=== PATIENT | female | born 1955 | race Caucasian/White ===

== ENCOUNTER → 2017-01-27 | Outpatient (CLI) | payer OTHER ==
[~2017-01-27] MED LIST: ASPCH81X PO; ATOR10TA82 PO; DILT-119 PO; GLC/500 PO; MULT-506 PO; OMEGCAP2 PO; VALS320T2 PO
[2017-01-27 12:18] LABS: BASO % 0.3 %; BASO ABS # 0.02 K/uL (0-0.2); COMPLETE YES; EOS % 2.7 %; HEMATOCRIT 40.2 % (37-47); IG% 0.3 %; LYMPH % 28.2 %; LYMPH ABS # 1.78 K/uL (1.2-3.4); MEAN CELL VOLUME 83.9 fL (80-100); MEAN CORPUSCULAR HEMOGLOBIN 26.7 pg (25-34); MEAN CORPUSCULAR HGB CONC 31.8 g/dl (32-36); MEAN PLATELET VOLUME 10.1 fL (7.4-10.4); MONO % 10.3 %; NEUT % 58.2 %; PLATELET COUNT 273 K/uL (130-400); RED BLOOD COUNT 4.79 M/uL (4.2-5.4); WHITE BLOOD COUNT 6.31 K/uL (4.8-10.8)
[2017-01-27 12:29] LABS: ALT/SGPT 22 U/L (12-78); BLOOD UREA NITROGEN 16 mg/dl (7-18); BUN/CREATININE RATIO 21.1 (10-20); CARBON DIOXIDE 30 mmol/L (21-32); CHLORIDE 101 mmol/L (98-107); CHOLESTEROL 117 mg/dl (0-200); CREATININE 0.76 mg/dl (0.60-1.20); GLUCOSE 101 mg/dl (70-99); POTASSIUM 4.1 mmol/L (3.5-5.1); SODIUM 139 mmol/L (136-145)
[2017-01-27 12:36] LABS: CALCIUM 9.8 mg/dl (8.5-10.1)
[2017-01-27 12:37] LABS: URINE APPEARANCE CLEAR (CLEAR); URINE BILIRUBIN NEG (NEG); URINE COLOR YELLOW; URINE EPITHELIAL CELL AUTO >30 /lpf (0-5); URINE NITRITE NEG (NEG); URINE PH 7.5 (4.5-7.5); URINE SPECIFIC GRAVITY 1.011 (1.000-1.030); UROBILINOGEN NEG (NEG); ZZUR CULT IF INDIC CLEAN CATCH YES
[2017-01-27 12:40] LABS: ALB/GLOB RATIO 1.1 (0.9-2); ALKALINE PHOSPHATASE 66 U/L (45-117); AST/SGOT 12 U/L (15-37); CHOLESTEROL/HDL RATIO 2.1; HDL CHOLESTEROL 56 mg/dl; LDL CHOLESTEROL CALCULATED 45 mg/dl; TRIGLYCERIDES 82 mg/dl (0-150); VERY LOW DENSITY LIPOPROT CALC 16 mg/dl
[2017-01-27 12:45] LABS: MANUAL MICROSCOPIC REQUIRED? NO; REVIEW REQ? NO
[2017-01-27 12:46] LABS: RATIO 10.1 mcg/mg (0-30.0)
[2017-01-27 12:55] LABS: ESTIMATED AVERAGE GLUCOSE 131 mg/dl; HA1C FLAG Normal (Normal)
== END | disposition home or self-care (01) ==
LOC: C.LABBFT 07:43
PROVIDERS: ATTEND Internal Medicine
DX: E11.9 Type 2 diabetes mellitus without complications (principal); E66.01 Morbid (severe) obesity due to excess calories; E78.5 Hyperlipidemia, unspecified

== ENCOUNTER → 2017-02-12 | Outpatient (CLI) | payer OTHER | END | disposition home or self-care (01) | LOC: C.PAPS 12:42 | PROVIDERS: ATTEND Obstetrics & Gynecology | DX: Z12.4 Encounter for screening for malignant neoplasm of cervix (principal) ==

== ENCOUNTER → 2017-02-12 | Outpatient (CLI) | payer OTHER ==
--- NOTE | 2017-02-12 09:02 | DIAGNOSTIC IMAGING REPORT ---
THYROID ULTRASOUND HISTORY: F45.8 Globus sensation COMPARISON: Neck ultrasound 11/18/2011. FINDINGS: Right lobe: 4.3 x 1.6 x 1.2 cm. There are 2 tiny cysts seen within the lower pole with the largest measuring 2 mm. No nodules identified. Left lobe: 4.4 x 1.5 x 1.4 cm. No nodules. Isthmus: 3 mm in thickness. No nodules. A 3 mm cyst. IMPRESSION: Essentially normal thyroid gland. Electronically signed by: Jimy Franks M.D. 02/12/2017 9:01 AM Dictated Date/Time: 02/12/2017 9:00 AM
== END | disposition home or self-care (01) ==
LOC: C.ULTR 08:28
PROVIDERS: ATTEND Internal Medicine
DX: F45.8 Other somatoform disorders (principal)

== ENCOUNTER → 2017-03-18 | Day surgery (SDC) | payer OTHER ==
[2017-03-05 10:43] VITALS: Ht 162.6 cm; Wt 104.5 kg
[~2017-03-18] VITALS: Ht 162.6 cm; Wt 104.5 kg
[~2017-03-18] MED LIST changes: -ATOR10TA82 PO; +ATOR10TA88 PO; +LIDOCAINE HCL 2% 2 ML VIAL (20MG/ML) ONE; +PROPOFOL IV EMULSION 10 MG/ML 20 ML VIAL IV ONE
--- NOTE | 2017-03-18 09:28 | Endo History and Physical ---
History & Physical Date of Service: Mar 18, 2017. Chief Complaint: screening Referring Physician: Dr. Shawn Miller History of Present Illness 61 yo CF who presents for screening colonoscopy. Past Surgical History Hx Cardiac Surgery: No Hx Internal Defibrillator: No Hx Pacemaker: No Hx Abdominal Surgery: Yes () Hx of Implantable Prosthesis: No Hx Post-Op Nausea and Vomiting: No Hx Cancer Surgery: No Hx Thoracic Surgery: No Hx Orthopedic: No Hx Urinary Tract Surgery: No Family History IBD Social History Smoking Status: Never Smoker Hx Substance Use: No Hx Alcohol Use: Yes (OCCASIONALLY) Allergies Coded Allergies: Amoxicillin (Verified Allergy, Unknown, RASH AND SWELLING OF JOINTS, ) Current Medications Reported Home Medications Medications Dose Route/Sig Max Daily Dose Days Date Category Aspirin Chewable (Aspirin) 81 Mg Chew 81 Mg PO HS 03/05/17 Reported Fish Oil ([place]-3 Fatty Acids) 1 Cap Cap 1 Cap PO QAM 03/05/17 Reported Multivitamin (Multivitamins) Tab 1 Tab PO QAM 03/05/17 Reported Diovan Hct 320MG/25MG (HCTZ/Valsartan) 1 Tab Tab 1 Tab PO QAM 03/05/17 Reported Tiazac (Diltiazem HCl) 360 Mg Capcr 360 Mg PO QAM 03/05/17 Reported Lipitor (Atorvastatin Calcium) 10 Mg Tab 10 Mg PO HS 03/05/17 Reported Glucophage (Metformin Hcl) 500 Mg Tab 2 Tab PO BID 03/05/17 Reported Vital Signs Weight (Kilograms): 104.55 Height (Feet): 5 Height (Inches): 4 Date Time Temp Pulse Resp B/P (MAP) Pulse Ox O2 Delivery O2 Flow Rate FiO2 03/18/17 09:06 37 75 20 174/99 (124) 97 Room Air Physical Exam General Appearance: WD/WN, no apparent distress Respiratory/Chest: Auscultation: breath sounds normal Cardiovascular: Heart Auscultation: RRR Abdomen: Bowel Sounds: normal Inspection & Palpation: soft, non-distended, no tenderness, guarding & rebound Assessment and Plan Assessment: 61 yo CF who presents for screening colonoscopy. Plan: Proceed with colonoscopy.
--- NOTE | 2017-03-18 09:53 | Discharge Instructions ---
Endoscopy Patient Instructions Date / Procedure(s) Performed Mar 18, 2017. Colonoscopy Allergy Information Coded Allergies: Amoxicillin (Verified Allergy, Unknown, RASH AND SWELLING OF JOINTS, ) Discharge Date / Findings Mar 18, 2017. Diverticulosis Internal hemorrhoids Medication Instructions Stopped Medication(s): last Baby ASA Thursday,2 adult ASA Thursday,last Glucophage Thursday OK to resume all medications today as prescribed Reported Home Medications Medications Dose Route/Sig Max Daily Dose Days Date Category Aspirin Chewable (Aspirin) 81 Mg Chew 81 Mg PO HS 03/05/17 Reported Fish Oil ([place]-3 Fatty Acids) 1 Cap Cap 1 Cap PO QAM 03/05/17 Reported Multivitamin (Multivitamins) Tab 1 Tab PO QAM 03/05/17 Reported Diovan Hct 320MG/25MG (HCTZ/Valsartan) 1 Tab Tab 1 Tab PO QAM 03/05/17 Reported Tiazac (Diltiazem HCl) 360 Mg Capcr 360 Mg PO QAM 03/05/17 Reported Lipitor (Atorvastatin Calcium) 10 Mg Tab 10 Mg PO HS 03/05/17 Reported Glucophage (Metformin Hcl) 500 Mg Tab 2 Tab PO BID 03/05/17 Reported Provider Instructions Activity Restrictions - No exercising or heavy lifting for 24 hours. - Do not drink alcohol the day of the procedure. - Do not drive a car or operate machinery until the day after the procedure. - Do not make any important decisions or sign important papers in 24 hours after the procedure. Following Day: - Return to full activity which may include returning to work/school. Diet Start your diet with liquids and light foods (jello, soup, juice, toast). Then eat your usual diet if not nauseated. Treatment For Common After Affects For mild abdominal pain, bloating, or excessive gas: - Rest - Eat lightly - Lie on right side Follow-Up Information Follow-up with Dr. Shawn Miller as scheduled Anesthesia Information What You Should Know You have had a procedure that required some medicine to reduce anxiety and discomfort. This treatment is called moderate sedation. After receiving the treatment, you may be sleepy, but you will be able to breathe on your own. The effects of the treatment may last for several hours. Follow these instructions along with Activity/Diet recommendations noted above: * Do NOT do anything where dizziness or clumsiness would be dangerous. * Rest quietly at home today, then you can be up and about tomorrow. * Have a responsible person stay with you the rest of today. * You may have had an I.V. today. If so, you may take the dressing off later today. Recommendations Call your doctor if: * Trouble breathing * Continuous vomiting for more than 24 hours * Temperature above 101 degrees * Severe abdominal pain or bloating * Pain not relieved by pain medicine ordered * There is increased drainage or redness from any incision * A large amount of rectal bleeding greater than 2-3 tablespoons. (If you had a polyp/s removed or have hemorrhoids, a small amount of blood - from the rectum is to be expected.) * You have any unanswered questions or concerns. IN THE EVENT OF A SERIOUS EMERGENCY, GO TO THE NEAREST EMERGENCY ROOM Your discharge instructions were prepared by provider Chava Toure. Patient Instructions Signature Page Nuha Han Patient (or Guardian) Signature/Date: I have read and understand the instructions given to me by my caregivers. Caregiver/RN/Doctor Signature/Date: The above-named patient and/or guardian has received patient instructions on this date. + Original Patient Signature Page (only) stays with chart. Please make copy for patient.
--- NOTE | 2017-03-18 09:57 | GI REPORT ---
Procedure Date: 03/18/2017 9:20 AM Procedure: Colonoscopy Indications: Screening for colorectal malignant neoplasm Medicines: Monitored Anesthesia Care Complications: No immediate complications. Estimated Blood Loss: Estimated blood loss: none. Procedure: Pre-Anesthesia Assessment: - Prior to the procedure, a History and Physical was performed, and patient medications and allergies were reviewed. The patient's tolerance of previous anesthesia was also reviewed. The risks and benefits of the procedure and the sedation options and risks were discussed with the patient. All questions were answered, and informed consent was obtained. Prior Anticoagulants: The patient has taken aspirin, last dose was 3 days prior to procedure. ASA Grade Assessment: II - A patient with mild systemic disease. After reviewing the risks and benefits, the patient was deemed in satisfactory condition to undergo the procedure. After I obtained informed consent, the scope was passed under direct vision. Throughout the procedure, the patient's blood pressure, pulse, and oxygen saturations were monitored continuously. The On-site loaner was introduced through the anus and advanced to the cecum, identified by appendiceal orifice and ileocecal valve. The colonoscopy was performed without difficulty. The patient tolerated the procedure well. The quality of the bowel preparation was good. The ileocecal valve, appendiceal orifice, and rectum were photographed. Findings: Multiple small-mouthed diverticula were found in the sigmoid colon. Non-bleeding internal hemorrhoids were found during retroflexion. The hemorrhoids were small. Impression: - Diverticulosis in the sigmoid colon. - Non-bleeding internal hemorrhoids. - No specimens collected. Recommendation: - Resume previous diet. - Continue present medications. - Repeat colonoscopy in 10 years for surveillance. - Return to primary care physician as previously scheduled. Chava Toure, 03/18/2017 9:57:36 AM This report has been signed electronically. Note Initiated On: 03/18/2017 9:20 AM I attest to the content of the Intraoperative Record and orders documented therein, exceptions below
--- NOTE | 2017-03-18 10:01 | Anesthesiology Progress Note ---
Anesthesia Post Op Note Date & Time Mar 18, 2017 at 10:01 Vital Signs Pain Intensity: 0 Vital Signs Past 12 Hours Date Time Temp Pulse Resp B/P (MAP) Pulse Ox O2 Delivery O2 Flow Rate FiO2 03/18/17 09:51 77 16 128/59 (82) 97 Room Air 03/18/17 09:06 37 75 20 174/99 (124) 97 Room Air Notes Mental Status: alert / awake / arousable, participated in evaluation Pt Amnestic to Procedure: Yes Nausea / Vomiting: adequately controlled Pain: adequately controlled Airway Patency, RR, SpO2: stable & adequate BP & HR: stable & adequate Hydration State: stable & adequate Anesthetic Complications: no major complications apparent
[2017-03-18 10:21] VITALS: BP 141/71; PULSE 63; O2SAT 96
== END | disposition home or self-care (01) ==
LOC: C.GI 08:37
PROVIDERS: ATTEND Internal Medicine
DX: Z12.11 Encounter for screening for malignant neoplasm of colon (principal); K57.30 Diverticulosis of large intestine without perforation or abscess without bleeding; K64.8 Other hemorrhoids; Z83.79 Family history of other diseases of the digestive system; Z79.82 Long term (current) use of aspirin; Z79.899 Other long term (current) drug therapy

== ENCOUNTER → 2017-03-25 | Outpatient (CLI) | payer OTHER ==
[~2017-03-25] MED LIST changes: -LIDOCAINE HCL 2% 2 ML VIAL (20MG/ML) ONE; -PROPOFOL IV EMULSION 10 MG/ML 20 ML VIAL IV ONE
--- NOTE | 2017-03-25 13:41 | MAMMOGRAPHY REPORT ---
BILATERAL DIGITAL SCREENING MAMMOGRAM TOMOSYNTHESIS WITH CAD: 03/25/2017 CLINICAL HISTORY: Routine screening. Patient has no complaints. TECHNIQUE: Breast tomosynthesis in addition to standard 2D mammography was performed. Current study was also evaluated with a Computer Aided Detection (CAD) system. COMPARISON: Comparison is made to exams dated: 03/12/2016 mammogram, 03/06/2015 mammogram, 02/08/2014 m ammogram, 02/02/2013 mammogram, 01/23/2012 mammogram, and 07/21/2011 ultrasound - [facility]. BREAST COMPOSITION: The tissue of both breasts is heterogeneously dense, which may obscure small mas ses. FINDINGS: There is a newly visualized 10 mm circumscribed round mass in the upper outer middle one t hird of the left breast, for which additional targeted ultrasound and possible additional mammographi c views is recommended, although this could represent a cyst. There are scattered benign-appearing coarse and rodlike calcifications in the breasts. Stable groupe d punctate microcalcifications in the medial aspect of each breast. No other suspicious mass, archite ctural distortion or cluster of microcalcifications is seen. IMPRESSION: ACR BI-RADS CATEGORY 0: INCOMPLETE EVALUATION: NEED ADDITIONAL IMAGING EVALUATION The newly visualized 10 mm circumscribed round mass in the upper outer left breast needs additional e valuation. The patient will be called to schedule an appointment. Approximately 10% of breast cancers are not detected with mammography. A negative mammographic report should not delay biopsy if a clinically suggestive mass is present. Kellie Rose M.D. ay/:03/25/2017 10:55:19 Mold Stamper And Repairer: Yesy LEE)(Contreras), [facility] letter sent: Addl Imaging 0 BI-RADS Code: ACR BI-RADS Category 0: Incomplete Evaluation: Need Additional Imaging Evaluation
== END | disposition home or self-care (01) ==
LOC: C.MAMM 10:12
PROVIDERS: ATTEND Obstetrics & Gynecology
DX: Z12.31 Encounter for screening mammogram for malignant neoplasm of breast (principal); N63 Unspecified lump in breast

== ENCOUNTER → 2017-04-01 | Outpatient (CLI) | payer OTHER ==
--- NOTE | 2017-04-01 12:24 | MAMMOGRAPHY REPORT ---
ULTRASOUND OF LEFT BREAST: 04/01/2017 CLINICAL HISTORY: Callback from screening mammogram for left breast mass. COMPARISON: Comparison is made to exams dated: 03/25/2017 mammogram, 03/12/2016 mammogram, 03/06/2015 ma mmogram, 02/08/2014 mammogram, 02/02/2013 mammogram, and 01/23/2012 mammogram - [facility] ter. TECHNIQUE: Real-time targeted ultrasound of the left breast was performed. FINDINGS: Real-time, high resolution targeted ultrasound was performed of the area of the mammograph ic mass seen on the recent screening mammogram. In the left breast at 2:00, 7 cm from the nipple, th ere is a round circumscribed anechoic mass with posterior acoustic enhancement, measuring 9 x 8 x 8 m m. This corresponds with the newly visualized mammographic mass and is consistent with a benign simp le cyst. IMPRESSION: ACR BI-RADS CATEGORY 2: BENIGN The mammographic mass corresponds with a benign 9 mm simple cyst in the left breast at 2:00 on ultras ound. There is no sonographic evidence of malignancy. A 1 year screening mammogram is recommended. The patient was verbally notified of the results. Brissa Bingham M.D. /:04/01/2017 11:08:36 Industrial Maintenance Repairer: Lynsey LEE)(M), [facility] letter sent: Normal 1/2 BI-RADS Code: ACR BI-RADS Category 2: Benign
== END | disposition home or self-care (01) ==
LOC: C.MAMM 10:33
PROVIDERS: ATTEND Obstetrics & Gynecology
DX: N60.02 Solitary cyst of left breast (principal)

== ENCOUNTER → 2017-07-07 | Outpatient (CLI) | payer OTHER ==
[~2017-07-07] VITALS: Ht 163.8 cm; Wt 106.0 kg
[~2017-07-07] MED LIST changes: +ATOR10TA82 PO; -ATOR10TA88 PO
[2017-07-07 14:17] VITALS: BP 143/82; Ht 163.8 cm; Wt 106.0 kg
== END | disposition home or self-care (01) ==
LOC: C.NEUR 13:40
PROVIDERS: ATTEND Internal Medicine Pulmonary Disease
DX: G47.30 Sleep apnea, unspecified (principal); E66.01 Morbid (severe) obesity due to excess calories; I10 Essential (primary) hypertension

== ENCOUNTER → 2017-07-29 | Outpatient (CLI) | payer OTHER ==
[2017-07-29 13:10] LABS: ESTIMATED AVERAGE GLUCOSE 126 mg/dl; HA1C FLAG Normal (Normal)
== END | disposition home or self-care (01) ==
LOC: C.LABBFT 07:39
PROVIDERS: ATTEND Internal Medicine
DX: E11.9 Type 2 diabetes mellitus without complications (principal)

== ENCOUNTER → 2018-03-30 | Outpatient (CLI) | payer OTHER ==
--- NOTE | 2018-03-31 13:39 | MAMMOGRAPHY REPORT ---
BILATERAL DIGITAL SCREENING MAMMOGRAM TOMOSYNTHESIS WITH CAD: 03/30/2018 CLINICAL HISTORY: Routine screening. Patient has no complaints. TECHNIQUE: The study was acquired using full field digital technology and interpreted from soft copy. Breast tomosynthesis in addition to standard 2D mammography was performed. Current study was also ev aluated with a Computer Aided Detection (CAD) system. COMPARISON: Comparison is made to exams dated: 03/25/2017 mammogram, 03/12/2016 mammogram, 03/06/2015 ma mmogram, 02/08/2014 mammogram, 02/02/2013 mammogram, and 01/02/2011 ultrasound - [facility] enter. BREAST COMPOSITION: The tissue of both breasts is heterogeneously dense, which may obscure small mass es. FINDINGS: There are fluctuating circumscribed masses in the breasts, most likely representing fluctua ting cysts. The dominant 11 mm mass in the upper outer left breast was previously documented to repr esent an anechoic simple cyst on ultrasound. There are stable groupings of benign-appearing punctate calcifications in the left breast, and diffuse rodlike and coarse calcifications bilaterally. Chelsea owens ribbon-shaped biopsy clip in the 9:00 right breast. No suspicious spiculated or irregular mass, arc hitectural distortion or new cluster of microcalcifications is seen. IMPRESSION: ACR BI-RADS CATEGORY 1: NEGATIVE There is no mammographic evidence of malignancy. A 1 year screening mammogram is recommended.( 019) The patient will receive written notification of the results. Some breast cancers are not detected with mammography. A negative mammographic report should not lillian y biopsy if a clinically suggestive mass is present. Kellie Rose M.D. ay/:03/30/2018 17:17:42 Wheel Presser: RT Sofya(Tanisha)(M), [facility] letter sent: Normal 1/2 BI-RADS Code: ACR BI-RADS Category 1: Negative
== END | disposition home or self-care (01) ==
LOC: C.MAMM 09:11
PROVIDERS: ATTEND Obstetrics & Gynecology
DX: Z12.31 Encounter for screening mammogram for malignant neoplasm of breast (principal)

== ENCOUNTER 2021-01-22 08:24 | Observation (INO) ==
--- NOTE | 2020-12-26 10:49 | PAT Medication Instructions ---
Medication Instructions Date of Service December 26, 2020 Home Medications Medication Instructions Recorded atorvastatin 20 mg tablet 20 mg PO HS 90 Days #90 tab 07/09/20 Wheeled Walker #1 ea 12/10/20 multivitamin 1 tab PO QAM aspirin 81 mg tablet 81 mg PO HS atorvastatin 20 mg tablet 20 mg PO HS diltiazem HCl 360 mg PO DAILY metformin 1,000 mg PO BID spironolacton-hydrochlorothiaz [Aldactazide] 1 tab PO QAM vit C,C-Lb-wglid-lutein-zeaxan [PreserVision AREDS-2] 1 tab PO BID STOP taking 2 weeks before surgery (or as soon as possible if surgery is within 2 weeks) vit C,A-Oj-ndtwa-lutein-zeaxan [PreserVision AREDS-2] 1 tab PO BID DO NOT take the morning of surgery multivitamin 1 tab PO QAM metformin 1,000 mg PO BID spironolacton-hydrochlorothiaz [Aldactazide] 1 tab PO QAM Take morning of surgery With a small sip of water, OTHERWISE NOTHING TO EAT OR DRINK AFTER MIDNIGHT: diltiazem HCl 360 mg PO DAILY Take evening before surgery aspirin 81 mg tablet 81 mg PO HS (continue as normal unless told otherwise by surgeon) atorvastatin 20 mg tablet 20 mg PO HS metformin 1,000 mg PO BID Other Notes If you have any questions please call us at [phone] or [phone] or [phone] or [phone]
--- NOTE | 2020-12-27 11:37 | Anesthesiology Consultation ---
Date of Service December 27, 2020 Assessment & Plan (1) Encounter for pre-operative examination: COVID Status: As of 12/27 assessment, patient denies travel to endemic area, known exposure/sick contacts, or symptoms of COVID19. Patient will be traveling to [facility] 12/30-01/14, staying in [facility], just her and spouse, maybe seeing a few friends. Patient is fully vaccinated. COVID test currently to be done 01/16, but will move to 01/18 (surgeon's office notified), and patient amenable to returning 01/13 to allow for five days between higher-risk activity and COVID test. Possible difficult intubation based on physical exam, but planning for SAB. Chart Review Chart Review: Acceptable Risk for Surgery and Patient seen in Pre Admission Testing Teaching & Discussion Instructed NPO after midnight before surgery, except medications with 15 cc of water. Medication instructions provided according to the PAT guidelines. History Surgery Operation Date: 01/22/21 07:00 Proposed Procedures p Left Total Knee Arthroplasty - Jake Gee MD Height/Weight Height: 5 ft 4.5 in Weight: 110.1 kg Allergies Allergy/AdvReac Type Severity Reaction Status Date / Time amoxicillin Allergy Intermediate HIVES AND Verified 12/19/20 14:28 SWELLING OF JOINTS clindamycin AdvReac Mild "metallic Verified 12/19/20 14:28 taste in mouth" Medications Home Medications Medication Instructions Recorded Confirmed Last Taken multivitamin 1 tab PO QAM 05/12/19 12/19/20 Unknown aspirin 81 mg tablet 81 mg PO HS tab 09/04/19 12/19/20 Unknown atorvastatin 20 mg tablet 20 mg PO HS 90 Days #90 tab 07/09/20 12/19/20 Unknown Wheeled Walker #1 ea 12/10/20 12/10/20 Unknown diltiazem HCl 360 mg PO DAILY 12/19/20 12/19/20 Unknown metformin 1,000 mg PO BID 12/19/20 12/19/20 Unknown spironolacton-hydrochlorothiaz 1 tab PO QAM 12/19/20 12/19/20 Unknown [Aldactazide] vit C,D-Sf-xebmi-lutein-zeaxan 1 tab PO BID 12/19/20 12/19/20 Unknown [PreserVision AREDS-2] Past Medical History Medical History Cardiac murmur Per echo 09/23/19 mild TR and mild MR. Diabetes mellitus, controlled NIDDM Diverticulosis History of endometriosis Hyperlipidemia Hypertension Internal hemorrhoids Left knee DJD Macular degeneration Morbid obesity Multiple pulmonary nodules Severe sleep apnea cpap, pt reports full compliance. Exercise / Class Metabolic Activity II 4-5 Yardwork/Stairs/Walk up hill Past Family History Family History Father COPD (chronic obstructive pulmonary disease) Brother Coronary heart disease Mother Hyperthyroidism Hypertension Multiple myeloma Sister Melanoma Other No family history of adverse response to anesthesia Denies family history of Ovarian cancer Breast cancer Colorectal cancer Past Surgical History Surgical History H/O section History of breast biopsy benign History of dilatation and curettage History of wisdom tooth extraction S/P colonoscopy with polypectomy S/P laparoscopy x2 Past Anesthesia History No Hx of Anesthesia Complications and No Family Hx of Anesthesia Complications History of PONV No Hx of PONV and No Hx of Motion Sickness Social History Smoking Status: Never smoker Do You Dip or Chew Tobacco: No Hx Alcohol Use: Yes Alcohol type: hard liquor alcohol intake frequency: other Alcohol Intake Frequency Comment: once a week has a mixed drink Hx Substance Use: No substance use type: does not use Review of Systems Pt denies any recent chest pain, shortness of breath, palpitations, cough, fever, URI, or uncontrolled acid reflux. Physical Exam Vital Signs BP: 132/82 P: 72bpm SPO2: 96% RA T: 99.4 F R: 12 Constitutional + morbidly obese [facility] Mouth: + dental restorations (few crowns) and + macroglossia; no chipped teeth and no loose teeth Thyromental Distance: < 3.5 Finger Breadths (3) Mallampati Class: IV Neck normal visual inspection; neck extension not limited Respiratory normal respiratory effort, lungs clear to auscultation Auscultation: + diminished lung sounds (b/l) Cardiovascular RRR, no murmur, no edema Testing Laboratory Results 12/27/20 12:01 12/27/20 12:01 PT 10.3 Seconds (9.0-12.0) 12/27/20 12:01 INR 1.0 (0.9-1.1) 12/27/20 12:01 APTT 23.4 Seconds (21.0-31.0) 12/27/20 12:01 Hemoglobin A1c 6.1 % (4.5-5.6) H 12/27/20 12:01 Blood Type A Positive 12/27/20 12: Antibody Screen NEGATIVE 12/27/20 12:01 Electrocardiogram Date: 12/04/20 This rhythm at 60 bpm. Marked left axis deviation. Chest X-Ray Date: 12/27/20 FINDINGS: The cardiac and mediastinal contours are normal. There is no evidence of focal pulmonary consolidation. There is no evidence of failure. No pleural effusions are visualized.[As there of linear scarring/atelectatic changes at the left lung base. Degenerative changes are present within the spine. IMPRESSION: No active disease in the chest. Echocardiogram Date: 09/23/19 EF: 55-60% The LV size, wall motion and systolic function are normal. Mild concentric LVH. Mild MR and mild TR.
--- NOTE | 2020-12-27 12:27 | XRay Report ---
XR chest Pre-admission PA/Lat CLINICAL HISTORY: Preoperative chest COMPARISON STUDY: April 2017 FINDINGS: The cardiac and mediastinal contours are normal. There is no evidence of focal pulmonary co nsolidation. There is no evidence of failure. No pleural effusions are visualized.[As there of linear scarring/atelectatic changes at the left lung base. Degenerative changes are present within the spin e. IMPRESSION: No active disease in the chest. ACT 112: Negative or not required by law. Electronically signed by: Mono Bernard M.D. 12/27/2020 12:25 PM
[2020-12-27 12:38] LABS: Basophils # (auto) 0.02 K/uL (0-0.2); Basophils % (auto) 0.3 %; Eosinophils # (auto) 0.26 K/uL (0-0.5); Eosinophils % (auto) 4.1 %; Hematocrit (blood only) 40.2 % (37-47); Hemoglobin 13.3 g/dL (12.0-16.0); Immature Granulocytes # (auto) 0.03 K/uL (0.00-0.02); Immature Granulocytes % (auto) 0.5 %; Lymphocytes # (auto) 1.97 K/uL (1.2-3.4); Lymphocytes % (auto) 30.9 %; Mean Corpuscular Hemoglobin 28.8 pg (25-34); Mean Corpuscular Hgb Conc 33.1 g/dL (32-36); Monocytes % (auto) 9.4 %; Neutrophils # (auto) 3.49 K/uL (1.4-6.5); Neutrophils % (auto) 54.8 %; Platelet Count 316 K/uL (130-400); RDW Coefficient of Variation 14.3 % (11.5-14.5); RDW Standard Deviation 45.8 fL (36.4-46.3); Red Blood Count 4.62 M/uL (4.2-5.4); White Blood Count 6.37 K/uL (4.8-10.8)
[2020-12-27 12:43] LABS: Partial Thromboplastin Ratio 0.9; Partial Thromboplastin Time 23.4 Seconds (21.0-31.0); Prothrombin Time 10.3 Seconds (9.0-12.0)
[2020-12-27 13:11] LABS: Estimated Average Glucose 128 mg/dl; Hemoglobin A1C 6.1 % (4.5-5.6)
[2020-12-27 14:56] LABS: BUN Creatinine Ratio 18.2 (10-20); Calcium 10.4 mg/dl (8.5-10.1); Creatinine Clr Calc Pharmacy 83.7 ml/min; Est GFR (Non-African American) 75.1; Potassium 4.3 mmol/L (3.5-5.1)
--- NOTE | 2021-01-19 11:43 | History and Physical Report ---
DATE OF ADMISSION: 01/22/2021 CHIEF COMPLAINT: Left knee pain. HISTORY OF PRESENT ILLNESS: The patient is a 65-year-old female who presents for surgical treatment of her left knee. She has a 10-year history of increasing left hip pain and discomfort that has become less responsive to conservative treatment. She has been through extensive care in the past including injections, which have just become less successful with time. The pain is globally in her knee. It hurts all the time, but increased with weightbearing and gets worse as the day goes on. She has a walking tolerance of a couple blocks. She has difficulty going up and down stairs. She has to go one step at a time. She would like to have her left knee fixed. PAST MEDICAL HISTORY: Significant for, 1. Hypertension. 2. Sleep apnea with CPAP machine. 3. Diabetes x5 years with an A1c of 6.1. 4. Obesity with a BMI of 41. PAST SURGICAL HISTORY: Includes . ALLERGIES: AMOXICILLIN, WHICH CAUSES SWELLING AND RASH, NO BREATHING PROBLEMS. ALSO DESCRIBES ALLERGIES TO CLINDAMYCIN. CURRENT MEDICINES: Include, 1. Aspirin 81 mg. 2. Atorvastatin 20 mg a day. 3. Diltiazem 360 mg a day. 4. Metformin 2000 mg a day. 5. Multivitamin. 6. Spironolactone/hydrochlorothiazide once a day. 7. Vitamins. SOCIAL HISTORY: A 65-year-old female. She is from [place]. One drink per week. Does not smoke. FAMILY HISTORY: Noncontributory. REVIEW OF SYSTEMS: Significant for a pretty well controlled diabetes. Denies any chest pain or shortness of breath. No history of DVT or PE. No known bleeding problems. PHYSICAL EXAMINATION: GENERAL: Shows a pleasant, healthy middle-aged female. HEENT: Benign. NECK: Supple, no lymphadenopathy. LUNGS: Clear to auscultation. HEART: Has a regular rate and rhythm. ABDOMEN: Soft, nontender, nondistended. EXTREMITIES: Grossly neurovascularly intact except as follows: Examination of the left knee reveals the patient ambulates independently. She does limp on this left side. She has got a varus alignment to her knee with a bit of a varus thrust with weightbearing. A small knee effusion. Range of motion 5-120. No instability. No pain with hip motion. X-RAYS: X-rays of the left knee show advanced left knee DJD. She has complete loss of her medial joint space. She has subchondral sclerosis. She has got [id number] disease. She has got osteophytes throughout, most severe on the medial side. ASSESSMENT: A 65-year-old white female with advanced left knee degenerative joint disease. She has failed conservative treatment and would like to have her left knee replaced. PLAN: We will take her to the operating room and do a left total knee replacement. The risks and benefits of this procedure were explained to the patient including but not limited to DVT, PE, , infection, neurological injury, vascular injury, bleeding problem, pain, limited range of motion, stiffness, failure to relieve her symptoms, incomplete relief of symptoms, need for further surgery in the future, fracture, leg length inequality, nerve palsy, etc. The patient understands and desires to proceed. Informed consent was obtained. She will need to bring her CPAP machine to the hospital. She knows to hold her metformin on the morning of surgery. We will use insulin sliding scale coverage in the hospital. She is planning to be discharged to home using [facility] home health program postoperatively.
[~2021-01-22 08:24] MED LIST changes: +ACETAMINOPHEN 500 MG TAB PO SCH; -ASPCH81X PO; -ATOR10TA82 PO; +BUPIVACAINE 0.5 % 5 MG/1 ML PF 10ML VIAL ONE; +BUPIVACAINE LIPOSOME/PF 266 MG, BUPIVACAINE/EPINEPHRINE 50 ML, SODIUM CHLORIDE 0.9% 30 ... INFIL SCH; -DILT-119 PO; +FAMOTIDINE 20 MG TAB PO SCH; +GABAPENTIN 300 MG CAP PO SCH; -GLC/500 PO; +LR 500ML BOLUS, THEN 15ML/HR IV SCH; +LR 60ML/HR IV SCH; -MULT-506 PO; -OMEGCAP2 PO; +Scopolamine 1 MG TDSY TD SCH; +TRANEXAMIC ACID 1,000 MG **IV Intra-op IV SCH; -VALS320T2 PO; +ceFAZolin 2000MG 2,000 MG/15 ML SYR IV SCH
--- NOTE | 2021-01-22 08:52 | History & Physical Bridge Note ---
Date of Service January 22, 2021 History & Physical Bridge Note I have examined the patient, reviewed the History & Physical and in the interval since the performance of the History & Physical I have noted the following changes of clinical significance: no changes noted
[2021-01-22] MEDS ORDERED: PROPOFOL IV EMULSION 10 MG/ML 20 ML VIAL IV ONE (09:14)
[2021-01-22] MEDS ORDERED: fentaNYL citrate 100 MCG/2 ML VIAL ONE (09:14)
[2021-01-22] MEDS ORDERED: MIDAZOLAM HCL 1 MG/ML 2ML VIAL ONE (09:14)
[2021-01-22] MEDS ORDERED: ONDANSETRON INJ 2 MG/ML 2 ML VIAL IV PRN ×2 (09:22→14:07)
[2021-01-22] MEDS ORDERED: fentaNYL citrate 100 MCG/2 ML VIAL IV PRN (09:22)
[2021-01-22] MEDS ORDERED: ATROPINE SULFATE 0.1 MG/ML 10ML SYR IV PRN (09:22)
[2021-01-22] MEDS ORDERED: ePHEDrine sulfate 50 MG/ML AMP IV PRN (09:22)
[2021-01-22] MEDS ORDERED: ceFAZolin 2,000 MG/15 ML IV PUSH IV ONE (09:32)
[2021-01-22] MEDS ORDERED: SODIUM CHLORIDE 0.9% PF 50 ML VIAL ONE (11:01)
[2021-01-22] MEDS ORDERED: BUPIVACAINE 0.25% 30 ML VIAL ONE (11:01)
[2021-01-22] MEDS ORDERED: EPINEPHrine INJ 1 MG/ML AMP ONE (11:01)
[2021-01-22] MEDS ORDERED: BUPIVACAINE LIPOSOME 1.3% 266 MG/20 ML VIAL ONE (11:02)
--- NOTE | 2021-01-22 13:31 | Anesthesiology Progress Note ---
Date of Service January 22, 2021 Anesthesia Post Procedure Vital Signs Vital Signs: Temp Pulse Pulse Resp BP Pulse Ox 01/22/21 13:25 97.7 F 85 20 140/69 94 01/22/21 13:15 76 16 144/70 H 96 01/22/21 13:08 97.3 F L 85 20 134/67 94 01/22/21 08:50 98.8 F 90 18 154/88 H 94 Transfer of Care Handoff Completed per policy Notes Mental Status: alert / awake / arousable and participated in evaluation Patient Amnestic to Procedure: Yes Nausea / Vomiting: adequately controlled Pain: adequately controlled Airway Patency, RR, SpO2: stable & adequate BP & HR: stable & adequate Hydration State: stable & adequate Neuraxial Anesthesia: was administered and sensory block is resolving Anesthetic Complications: no major complications apparent and Pt Satisfied with anesthetic care
--- NOTE | 2021-01-22 13:49 | XRay Report ---
XR knee LT 1 or 2V routine CLINICAL HISTORY: Surgical Post Op COMPARISON: None. DISCUSSION: There are postsurgical changes of a total left knee arthroplasty and patellar resurfacing . There are overlying skin lawrence. There is gas within the soft tissues consistent with recent surge ry. The femoral tibial components appear well seated. IMPRESSION: Postsurgical changes of a total left knee arthroplasty. ACT 112: Negative or not required by law. Electronically signed by: Mono Bernard M.D. 01/22/2021 1:47 PM
[2021-01-22] MEDS ORDERED: bisacodyL 10 MG SUPP PR PRN (14:07)
[2021-01-22] MEDS ORDERED: ALUMINUM/MAGNESIUM SUSP 30 ML UDC PO PRN (14:07)
[2021-01-22] MEDS ORDERED: NALOXONE HCL 0.4 MG/1 ML VIAL/CARP IV PRN (14:07)
[2021-01-22] MEDS ORDERED: MAGNESIUM HYDROXIDE SUSP 30 ML UDC PO PRN (14:07)
[2021-01-22] MEDS ORDERED: HYDROmorphone INJ 0.5 MG/0.5 ML SYR IV PRN (14:07)
[2021-01-22] MEDS ORDERED: diphenhydrAMINE Capsule 25 MG CAP PO PRN (14:07)
[2021-01-22] MEDS ORDERED: METOCLOPRAMIDE HCL INJ 5 MG/ML 2 ML VIAL IV PRN (14:07)
[2021-01-22] MEDS ORDERED: oxyCODONE HCL IR 5 MG TAB (IMMEDIATE RELEASE) PO PRN (14:07)
[2021-01-22] MEDS ORDERED: PHARMACY GLYCEMIC MGMT CONSULT PRN (14:27)
[2021-01-22] MEDS ORDERED: GLUCAGON FOR INJ 1 MG VIAL IM PRN (15:00)
[2021-01-22] MEDS ORDERED: GLUCOSE 40% GEL 15 GM TUBE PO PRN (15:00)
[2021-01-22] MEDS ORDERED: DEXTROSE 50% 50 ML SYRINGE IV PRN (15:00)
[2021-01-22] MEDS ORDERED: GLUCOSE 10 TABS/TUBE PO PRN (15:00)
[2021-01-22] MEDS ORDERED: CARBOHYDRATES FOR HYPOGLYCEMIA PO PRN (15:00)
--- NOTE | 2021-01-22 15:01 | Pharmacy Report ---
Pharmacy Glycemic Short Note 2 - Date of Service January 22, 2021 - Glycemic Short BSG Results (Last 24 hours): 01/22/21 01/22/21 08:50 13:18 POC Glucose 113 H 104 H OUTPATIENT ANTIDIABETIC REGIMEN: * Metformin 1gm PO BID * HbA1c: 6.1% (12/27/20) ASSESSMENT: * Ms Han is a 65yo diabetic female, POD 0 s/p L TKA with Dr Gee this morning. * It does not appear as though pt received any intraoperative steroids today. * BSGs have been well-controlled so far today (113, 104). * Novolog initiated post-op to provide prandial/correctional insulin. Will plan to resume Metformin tomorrow if patient is tolerating her diet post-op. PLAN FOR INPATIENT GLYCEMIC CONTROL: * Hold outpatient oral diabetes medications * Resume Metformin 1gm PO BID tomorrow * Basal insulin * none at this time * Bolus insulin * NovoLog per scale ACHS or Q6hrs while NPO * Goal Range: Low 110 mg/dL - High 140 mg/dL * Correction Factor: 30 mg/dL/unit * Nutritional / Prandial insulin per carb ratio of 1 unit per 12 grams CHO consumed -- can remove carb ratio when Metformin is resumed PLAN FOR DISCHARGE: * A1c: 6.1% * This indicates appropriate glycemic control as an outpt. Expect that patient may resume home regimen on discharge.
[2021-01-22] MEDS: Scopolamine CHECK PATCH PLACEMENT SCH ×2 (15:59→23:03)
[2021-01-22] MEDS: KETOROLAC TROMETHAMINE 15 MG/ML VIAL IV SCH ×2 (16:00→21:53)
[2021-01-22] MEDS: ACETAMINOPHEN 500 MG TAB PO SCH ×2 (16:00→21:55)
[2021-01-22] MEDS: ASCORBIC ACID 500 MG TAB PO SCH (16:01)
[2021-01-22] MEDS: SODIUM CHLORIDE 0.9% 1000ML 1,000 ML IV SCH (16:05)
--- NOTE | 2021-01-22 17:20 | Operative Report ---
Post Operative Report Pre & Post Diagnosis Operation Date: 01/22/21 10:40 Pre-Op Diagnosis: Left Knee Advanced Degenerative Joint Disease Post-Op Diagnosis: Left Knee Advanced Degenerative Joint Disease I identified the patient and participated in the time-out.: Yes Procedure Operation Date: 01/22/21 10:40 Actual Procedures p Left Total Knee Arthroplasty(Left) - Jake Gee MD Surgeon Jake Gee MD [employer] Super[employer] CARLOTTA Guzman Estimated Blood Loss 50 Findings Consistent with Post-Op Diagnosis Operative findings real advanced left knee DJD. She had extensive grade 4 [id number] disease of the medial and patellofemoral compartments. She had a varus deformity to her knee with a large knee joint effusion. She had osteophytes primarily in the medial and patellofemoral compartments. Fluids 900 cc. Specimens Left knee sent for pathology. Drains None Anesthesia Type Spinal MAC Complications none Disposition Accompanied Patient To Recovery: No Disposition: Recovery Room Indications Patient is a 65-year-old female is had a fairly long history of left knee pain discomfort describes gotten worse over time patient been through extensive conservative treatment which became less successful over time. X-ray showed advanced left knee DJD. She elected proceed with surgical treatment. Description of Procedure Operative implants consist of: 1. Biomet Vanguard size 60 left posterior stabilized femoral component. 2. Biomet size 67 tibial tray. 3. 10 mm posterior stabilized polyethylene insert. 4. 28 x 8 all polypatella. The patient was taken to the operating room, identified, placed on the operating table supine position general contractors were properly padded. IV antibiotics 5 by anesthesia team. A spinal anesthetic and abductor canal block had been applied in the holding area. Mahajan catheter was placed in sterile fashion. Left thigh turn was then placed in the left lower extremities and prepped and draped in usual sterile fashion. The left leg was elevated exsanguinated with use of an Esmarch interspace at 300 mmHg. An anterior approach left knee was then performed through longitudinal incision centered over the patella. Sharp dissection was carried through subcutaneous tissue down to the level of the extensor mechanism. A medial parapatellar arthrotomy incision was made. Some subperiosteal dissection was carried out medially. The fat pad was resected from each patella tendon. Later al patellofemoral ligament was released. Patella was subluxated laterally and the knee was flexed. The osteophytes were taken off distal femur. ACL and PCL were then released from the distal femur and the tibia subluxated anteriorly. The external tibial alignment jig was then placed in the interface the tibia and adjusted 14 mm medially. Proximal tibial cut was made remove about a millimeter bone from the most deficient aspect medial tibial plateau. Some osteophytes were taken off medial and posterior medially. The tibia was incised to a size 67. Attention drawn the femur. The distal femur with a sharp drop with intramedullary canal was suction. A left five 5 degree valgus cutting guide was placed. The distal femoral cutting block was pinned in place. Distal femoral cut was made to take an additional 3 mm of bone off distal femur. The femur was then sized to a size 60. Sized exactly to a 60. The AP cutting block was pinned parallel to the epicondylar axis which was 4 degrees of external rotation. Anterior cut, anterior chamfer, posterior cut, posterior chamfer cuts were made. The box cutting guide was placed in just slight lateral box cut was made. The knee was flexed. The remnants of medial and lateral menisci were excised but the osteophytes were taken off the posterior aspect of the femur. A trial femoral component was placed. The tibial tray was pinned in maximum external rotation and the drill and stem punch were used to create defect in proximal tibia for the tibial tray. The knee was then trialed and the 10 mm insert fit most appropriately. Att ention drawn the patella. The patella was cleaned of all soft tissues. Patella was quite thin and measured 18 mm in thickness. It was cut down to 12 mm. It was sized to a size 28 patella. The lug holes were drilled for the 28 patella. The lateral osteophyte is moved. Patella button was placed. Knee was taken through range of motion patella tracked nicely with no thumbs test. Attention drawn to place the permanent components. All trial components were removed. Bone plug was placed in the distal femur limit blood loss. Double batch Pal[place]os G cement was mixed. A Biomet Vanguard size 60 left posterior stabilized femoral component, size 67 tibial tray, a 10 mm posterior stabilized polyethylene insert, and a 28 x 8 all polypatella were then cemented in place. The knee was brought out into full extension until cement hardened. Final cement check was then performed. Pericapsular tissues were injected with a total of 100 cc of combination of 20 cc of Exparel, 30 cc normal saline, 50 cc of quarter percent Marcaine with epinephrine. Patient did receive 1 g tranexamic acid. The tourniquet was then let down for final tourniquet time 58 minutes. Hemostasis assured use electroca utery. Extensor mechanism closed with combination 1 PDS suture #1 Vicryl suture in [id number] fashion. Extensor mechanism checked found to be intact the subcutaneous tissue then closed with 2 Dexon suture in a buried interrupted fashion skin was closed skin lawrence. Leg was then cleaned dried a sterile dressing both Xeroform, 4 fours, sterile cast padding and an Ed bandage were applied. Patient was then transferred to the recovery room in stable condition. Patient tolerated the procedure well and there were no complications. Klever Guzman, my physician senior administrative assistant, was present for the entire procedure. His assistance was essential and required for appropriate patient positioning, prepping and draping, surgical exposure, performing the technical details of the operation, placement the implants, closure of the wound, and placement of the sterile bandage. I attest to the content of the Intraoperative Record and any orders documented therein. Any exceptions are noted below.
[2021-01-22] MEDS: INSULIN ASPART 100 UNITS/ML 3 ML PEN SC SCH ×2 (17:37→20:50)
[2021-01-22] MEDS: ceFAZolin 2000MG 2,000 MG/15 ML SYR IV SCH (17:40)
[2021-01-22] MEDS ORDERED: TRANEXAMIC ACID / 0.7% NACL 1,000 MG/100 ML BAG IV SCH (19:00)
[2021-01-22] MEDS ORDERED: SENNA 8.6 MG TAB PO SCH (21:00)
[2021-01-22] MEDS ORDERED: ATORVASTATIN 20 MG TAB PO SCH (21:00)
[2021-01-22] MEDS: PROSOURCE NO CARB 30 ML/PKT PO SCH (21:53)
[2021-01-22] MEDS: DOCUSATE SODIUM 100 MG CAP PO SCH (21:54)
[2021-01-22] MEDS: CEROVITE ADV FORMULA TAB PO SCH (21:54)
[2021-01-22] MEDS: ASPIRIN 81 MG ECTAB PO SCH (21:55)
[2021-01-22] MEDS: TAPENTADOL HCL ER 50 MG TABCR PO SCH (22:06)
[2021-01-23] MEDS: SODIUM CHLORIDE 0.9% 1000ML 1,000 ML IV SCH (02:56)
[2021-01-23] MEDS: ceFAZolin 2000MG 2,000 MG/15 ML SYR IV SCH (02:57)
[2021-01-23] MEDS: KETOROLAC TROMETHAMINE 15 MG/ML VIAL IV SCH ×2 (03:00→10:18)
[2021-01-23] MEDS: ACETAMINOPHEN 500 MG TAB PO SCH ×2 (06:05→15:28)
[2021-01-23 06:45] LABS: Hematocrit (blood only) 35.4 % (37-47); Hemoglobin 11.6 g/dL (12.0-16.0); Mean Corpuscular Hemoglobin 28.4 pg (25-34); Mean Corpuscular Hgb Conc 32.8 g/dL (32-36); Mean Corpuscular Volume 86.6 fL (80-100); Mean Platelet Volume 9.7 fL (7.4-10.4); Platelet Count 237 K/uL (130-400); RDW Coefficient of Variation 14.4 % (11.5-14.5); RDW Standard Deviation 45.2 fL (36.4-46.3); Red Blood Count 4.09 M/uL (4.2-5.4); White Blood Count 9.08 K/uL (4.8-10.8)
[2021-01-23 07:16] LABS: BUN Creatinine Ratio 18.6 (10-20); Calcium 8.4 mg/dl (8.5-10.1); Est GFR (African American) 75.7 ml/min; Est GFR (Non-African American) 65.3 ml/min; Potassium 3.9 mmol/L (3.5-5.1)
[2021-01-23] MEDS: INSULIN ASPART 100 UNITS/ML 3 ML PEN SC SCH ×2 (08:36→12:26)
[2021-01-23] MEDS: TAPENTADOL HCL ER 50 MG TABCR PO SCH (08:36)
[2021-01-23] MEDS: ASPIRIN 81 MG ECTAB PO SCH (08:37)
[2021-01-23] MEDS: ASCORBIC ACID 500 MG TAB PO SCH (08:37)
[2021-01-23] MEDS: DOCUSATE SODIUM 100 MG CAP PO SCH (08:38)
[2021-01-23] MEDS: CEROVITE ADV FORMULA TAB PO SCH (08:38)
[2021-01-23] MEDS: PROSOURCE NO CARB 30 ML/PKT PO SCH ×2 (08:39→15:28)
[2021-01-23] MEDS: Scopolamine CHECK PATCH PLACEMENT SCH (08:40)
[2021-01-23] MEDS ORDERED: MULTIVITAMIN TAB PO SCH ×2 (09:00)
[2021-01-23] MEDS ORDERED: SPIRONOLACTONE/HCTZ 25-25 PO SCH (09:00)
[2021-01-23] MEDS ORDERED: dilTIAZem HCL 180 MG CAPCR PO SCH (09:00)
--- NOTE | 2021-01-23 13:23 | Pharmacy Report ---
Pharmacy Glycemic Short Note 2 - Date of Service January 23, 2021 - Glycemic Short BSG Results (Last 24 hours): 01/22/21 01/22/21 01/22/21 13:18 15:00 16:54 Glucose POC Glucose 104 H 105 H 137 H 01/22/21 01/23/21 01/23/21 20:32 06:21 07:57 Glucose 98 POC Glucose 124 H 112 H 01/23/21 12:04 Glucose POC Glucose 142 H OUTPATIENT ANTIDIABETIC REGIMEN: * Metformin 1gm PO BID * HbA1c: 6.1% (12/27/20) ASSESSMENT: 01/23 * Patient's BSGs have been well controlled over the past 24 hours * Patient refused insulin for carb coverage this AM and at lunch, will remove carb coverage and add home metformin with evening meal as she has been tolerating diet 01/22 * Ms Han is a 65yo diabetic female, POD 0 s/p L TKA with Dr Gee this morning. * It does not appear as though pt received any intraoperative steroids today. * BSGs have been well-controlled so far today (113, 104). * Novolog initiated post-op to provide prandial/correctional insulin. Will plan to resume Metformin tomorrow if patient is tolerating her diet post-op. PLAN FOR INPATIENT GLYCEMIC CONTROL: * Resume metformin 1gm BIDM * Basal insulin * none at this time * Bolus insulin * NovoLog per scale ACHS or Q6hrs while NPO * Goal Range: Low 110 mg/dL - High 140 mg/dL * Correction Factor: 30 mg/dL/unit PLAN FOR DISCHARGE: * A1c: 6.1% * This indicates appropriate glycemic control as an outpt. Expect that patient may resume home regimen on discharge.
--- NOTE | 2021-01-23 15:58 | Progress Notes ---
DATE: 01/23/2021 SUBJECTIVE: A 65-year-old white female postop day 1 from left knee replacement. She is doing pretty well. Pain is controlled. The pain medicine kind of made her really tired. No chest pain or shortness of breath. Not feeling dizzy or lightheaded. OBJECTIVE: VITAL SIGNS: Temperature is 36.7. Vital signs stable. GENERAL: Shows a pleasant, middle-aged female. She is sitting up in bed and I had to wake her this afternoon when I visited her. LUNGS: Clear to auscultation. HEART: Has regular rate and rhythm. ABDOMEN: Soft, nontender, nondistended. EXTREMITIES: Grossly neurovascularly intact except as follows. Examination of the left leg reveals the leg to be well aligned. Dressing is clean, dry and intact. She can dorsiflex and plantarflex her foot appropriately. She can do a straight leg raise. LABORATORY DATA: Hemoglobin is 11.6. Hematocrit 35.4. Electrolytes are stable. ASSESSMENT: A 65-year-old white female postop day 1 from left knee replacement, doing pretty well. Pain is controlled. She is neurologically intact. PLAN: 1. DVT prophylaxis including thigh-high TEDs, SCDs, and aspirin twice a day. 2. PT/OT. Weight bear as tolerated. Left total knee protocol. 3. Pain control, doing well with current pain regimen. 4. Disposition: Plan to discharge to home with some home health later today if pain is controlled and does okay in therapy.
[2021-01-23] MEDS ORDERED: metFORMIN HCL 500 MG TAB PO SCH (17:00)
--- NOTE | 2021-01-26 07:15 | Discharge Summary ---
Date of Service January 26, 2021 Discharge Data Procedures Performed Operation Date: 01/22/21 10:40 Actual Procedures p Left Total Knee Arthroplasty(Left) - Jake Gee MD Hospital Course (1) Status post total left knee replacement: This patient is a 65 year old admitted on 01/22/21 and underwent total knee arthroplasty. She tolerated the procedure well and there were no complications. Transferred to the PACU post op and later to the orthopedic floor for further care. She was given ancef for antibiotic prophylaxis. She was also given HE stockings, SCDs, and aspirin for DVT prophylaxis. Hemoglobin, hematocrit, and vital signs were monitored during her hospital stay and remained stable. Did not require any blood transfusions. There were no complications during her hospital stay. By post op day #1 the patient was tolerating a diabetic diet, pain was reasonably controlled with oral pain medicine, and she was participating in physical therapy. On post op day #1 the patient was discharged home and set up with home health care. She was given printed discharge instructions including prescriptions for extra strength tylenol, aspirin, and oxycodone. Continue physi shakeel therapy, weight bearing as tolerated. Continue HE stockings. Follow up approximately 2 weeks post op or sooner if there are problems or concerns. Coding Level of Care Code None Diagnoses Status post total left knee replacement Z96.652
== END 2021-01-23 16:55 | disposition home health service (06) ==
LOC: 3E 08:24 → ASU 08:24